=== PATIENT | female | born 1970 | race Asian ===

== ENCOUNTER 2023-06-23 15:57 | Emergency (ER) | payer OTHER, SELFPAY ==
[2023-06-23] VITALS (9 sets, daily range): BP systolic 109–168; BP diastolic 70–98; BMI 25.3
--- NOTE | 2023-06-23 17:11 | ED.GENMED ---
History of Present Illness
<Jennifer Barnhart PA-C - Last Filed: 06/23/23 21:13>
General
Chief Complaint: Chest Pain
Source: patient
Exam Limitations: none
Time Seen by Provider: 06/23/23 16:38
Nursing documentation reviewed up to this point in time: agreed with
Travel History
Have you had any contact with someone who has COVID-19?: No
Do you have any symptoms of coronavirus? Fever > 100 degrees, chills, cough, shortness of breath, sore throat, loss of taste or smell, muscle aches, or headache?: No
History of Present Illness
History of Present Illness:
Patient is a 52 y.o female with hx HTN, DM2 presenting for evaluation of fluctuations in heart rate associated with brief episode of chest pressure earlier today. Patient states that her apple watch monitors her heart rate and she noticed earlier
around 2PM that it was fluctuating between 50-90bpm and decided to come to the emergency department for evaluation. While driving to the ER around 3PM she started feeling left sided chest pressure, mild shortness of breath, and lightheadedness. She
pulled over and called 911. While in route to ER via EMS she received 2 doses of baby aspirin and a dose of nitroglycerin. Since arriving to the emergency department she is asymptomatic. She denies any recent fevers, chills, vomiting, cough,
hemoptysis. No weakness, visual changes, or numbness. No recent travel or surgeries.
She has recently been working to get blood pressure under better control. She has been seen in both our ER and [place] ED multiple times over the past month. She started metoprolol 50mg BID 1 week ago, as prescribed by PCP, which has been working
well for patients blood pressure thus far.
She has appointment scheduled with cardiology tomorrow.
Past History
<Jennifer Barnhart PA-C - Last Filed: 06/23/23 21:13>
Past History
ED Past Medical History: NIDDM; Negative HTN
Social History
Tobacco: Non-smoker
Alcohol: None
Drug: None
Personal:
Living: with family
Employment: Employed
Phy Exam
<Jennifer Barnhart PA-C - Last Filed: 06/23/23 21:13>
Physical Exam
Physical Exam:
General: Well appearing and non-toxic, vital signs reviewed- patient afebrile
HEENT: Atraumatic, normocephalic; pupils equal round reactive to light bilaterally, extraocular muscles intact, protecting airway
Neck: appears supple, normal ROM, no jugular venous distention
CV: Regular rate and rhythm, heart sounds normal, no evidence of cyanosis; no pain to palpation of anterior chest wall
Resp: No evidence of respiratory distress, lungs clear, no accessory muscle use
Abd: Soft, nontender, non-distended
Extremities: No deformities, no evidence of cyanosis or edema
Neuro: alert and oriented to person, place, time; speech normal, no focal neurological deficits
Psych: Normal affect
Skin: Intact, no rashes
Scores
<Jennifer Barnhart PA-C - Last Filed: 06/23/23 21:13>
Heart Score for Chest Pain Patients
STEMI patient?: No
History: Slightly or Non-Suspicious
ECG: Normal
Age: >45 - <65 years
Risk Factors: 1 or 2 Risk Factors
Troponin: </= Normal Limit
Heart Score for Chest Pain Patients: 2
Heart Score Risk: 2.5% MACE over next 6 weeks
Course
<Jennifer Barnhart PA-C - Last Filed: 06/23/23 21:13>
Orders/Labs/Results
Orders:
Orders
06/23/23 16:20
EKG [Electrocardiogram (*1)] Urgent
Reason for Study: Chest Pain
EKG- Treatment ONCE
06/23/23 17:26
Complete Blood Count/With Diff Urgent
Comprehensive Metabolic Panel Urgent
TSH Reflex To Free T4 Urgent
Troponin I Urgent
Abnormal Lab Results
06/23/23
17:26
WBC 12.5 H 10^3/uL
(4.8-10.8)
MCH 32.0 H pg
(27.0-31.0)
RDW 11.4 L %
(11.5-14.5)
Absolute Neuts (auto) 9.0 H 10^3/uL
(1.4-6.5)
Absolute Monos (auto) 0.7 H 10^3/uL
(0.1-0.6)
Lymphocytes % 20.1 L %
(20.5-51.1)
Creatinine 0.5 L mg/dL
(0.6-1.0)
Glucose 169 H mg/dl
(70-99)
06/23/23 17:26
06/23/23 17:26
Vital Signs
Initial and Last Documented VS:
Initial Vital Signs
Pulse Resp Pulse Ox
93 12 100
06/23/23 16:01 06/23/23 16:01 06/23/23 16:01
Last Documented Vital Signs
Temp Pulse Resp BP Pulse Ox
97.7 F 85 18 121/78 98
06/23/23 16:05 06/23/23 20:30 06/23/23 20:30 06/23/23 20:00 06/23/23 20:30
Charleslt;Teddy Aleman, DO - Last Filed: 06/23/23 18:09>
Orders/Labs/Results
Orders:
Orders
06/23/23 16:20
EKG [Electrocardiogram (*1)] Urgent
Reason for Study: Chest Pain
EKG- Treatment ONCE
06/23/23 17:26
Complete Blood Count/With Diff Urgent
Comprehensive Metabolic Panel Urgent
TSH Reflex To Free T4 Urgent
Troponin I Urgent
Abnormal Lab Results
06/23/23
17:26
WBC 12.5 H 10^3/uL
(4.8-10.8)
MCH 32.0 H pg
(27.0-31.0)
RDW 11.4 L %
(11.5-14.5)
Absolute Neuts (auto) 9.0 H 10^3/uL
(1.4-6.5)
Absolute Monos (auto) 0.7 H 10^3/uL
(0.1-0.6)
Lymphocytes % 20.1 L %
(20.5-51.1)
Creatinine 0.5 L mg/dL
(0.6-1.0)
Glucose 169 H mg/dl
(70-99)
06/23/23 17:26
06/23/23 17:26
Vital Signs
Initial and Last Documented VS:
Initial Vital Signs
Pulse Resp Pulse Ox
93 12 100
06/23/23 16:01 06/23/23 16:01 06/23/23 16:01
Last Documented Vital Signs
Temp Pulse Resp BP Pulse Ox
97.7 F 85 18 121/78 98
06/23/23 16:05 06/23/23 20:30 06/23/23 20:30 06/23/23 20:00 06/23/23 20:30
<Jennifer Barnhart PA-C - Last Filed: 06/23/23 21:13>
MDM/Problems Addressed
Differential Diagnosis Includes:
ACS, unstable angina, stable angina, cardiac arrhythmia,
MDM/Problems Addressed:
Patient is a 52 y.o female presenting for evaluation of heart palpitations with associated chest pressure earlier today. Symptoms have resolved since arriving to emergency department. She has been seen multiple times over the past month for various
complaints. All workups have been negative. She recently started metoprolol for high blood pressure and has follow-up scheduled tomorrow with cardiology for recent fluctuations in heart beat/palpitations. Physical exam as documented above. She is
hemodynamically stable. Physical exam without any acute findings. Heart regular rate rhythm, lungs clear. No focal neurologic deficits�do not suspect stroke. Will get cardiac workup. Basic labs, troponin, TSH, EKG. Will reassess.
CBC with mild leukocytosis of 12.5. Otherwise no clinically significant abnormalities. CMP without any clinically significant abnormalities. Troponin negative. TSH within normal range
EKG shows normal sinus rhythm without any signs of ischemia.
Cardiac workup negative. Patient has had multiple episodes while in emergency department of very brief tachyarrhythmia-sinus tach versus possible a flutter. Patient's vital signs remained stable other than occasional tachycardia. These have
occurred without any associated chest pain, shortness of breath. Patient is very worried about heart palpitations and if they occur at home. She would like to take her scheduled dose of metoprolol and continue to be monitored for the next hour.
She declined any antianxiety medication. Will reassess
Patient has remained asymptomatic for the past hour. She is feeling well. No indication at this time. Cardiac workup negative. We were able to capture and print monitor strip at the point of tachyarrhythmia with heart rate in 140s. She will
bring this to cardiology follow-up tomorrow. She is stable for discharge with strict return precautions, immediate cardiology follow-up tomorrow. Patient comfortable with this plan. All questions answered.
Chronic conditions affecting care:
Hypertension
Acute Exacerbation and/or Progression of Chronic Illness:
Palpitations
<Jennifer Barnhart PA-C - Last Filed: 06/23/23 21:13>
*Pulse Oximetry
Patient hypoxic: no
*EKG
Interpreted by ED Provider?: Yes
EKG Intrepretation Date: 06/23/23
Interpretation: normal
Comparison EKG: changes noted
Heart Rate: 90
Rate: normal
Rhythm: sinus
[place]: normal axis
Interval: normal interval
QRS Pattern: normal QRS
Ischemia: no ischemia
*Nozzle Cement Sprayer Helper Interpretation
Rate: normal
Interpretation: normal
Heart Rate: 96
Rhythm: sinus
*Critical Care Note
Total Time (30-74mins, 75-104mins- exclusive of procedures): Not Applicable
ED Attending Note
<Jennifer Barnhart PA-C - Last Filed: 06/23/23 21:13>
-
Portions of this chart may have been created with voice recognition software.� Occasional wrong word or��sound alike� substitutions may have occurred due to the inherent limitations of voice recognition software.
<Teddy Aleman DO - Last Filed: 06/23/23 18:09>
ED Attending Note
Patient seen and examined by attending physician: Yes
I performed the substantive portion of visit, reviewed & personally made and approve the management plan that is documented in note by myself or JAKE.: Yes
ED Attending Note:
Seen with PA examined independently agree with assessment and plan
Episode of palpitations while driving seen by myself and several other ER visits recently here had a run of tachyarrhythmia, will review the strips, she does have a appointment with cardiology tomorrow is already on a beta-yonatan
Discharge Plan
Departure
Patient Disposition: Home (Routine Discharge)
Date of Disposition: 06/23/23
Time of Disposition: 21:06
Patient with high blood pressure during this ER visit?: No
Condition: Good
Covid-19: Not Applicable
Discharge Problem:
Heart palpitations
Instructions: Chest Pain (DC), Palpitations (DC)
Prescriptions:
No Action
glipizide 10 mg Tablet
10 mg PO BID
metformin 1,000 mg Tablet
1,000 mg PO BID@0800,1700
Humira(CF) Pen 80 mg/0.8 mL Pen Injector Kit
80 mg SC Q2W
lisinopril 5 mg tablet
5 mg PO DAILY Qty: 30 0RF
aspirin [Adult Low Dose Aspirin] 81 mg tablet,delayed release (DR/EC)
81 mg PO DAILY Qty: 60 0RF
Referrals:
Daria Birmingham NP [Family Provider] -
Raj Bach MD [Active] - Keep scheduled appt
Activity Restrictions/Additional Instructions:
-Return to the emergency department with any severe chest pain, shortness of breath, altered mental status, significant worsening in current symptoms, or any other concerns
-As discussed - continue to take your medication as prescribed
-Follow-up with cardiology tomorrow with scheduled appointment.
-Stay well hydrated.
Interventions
Interventions:
*Risk Screen - Suicide Last Done: 06/23/23 16:13
*General Assessment Last Done: 06/23/23 16:13
*Neglect/Abuse Screening Last Done: 06/23/23 16:13
ED- Fall Risk Assessment Last Done: 06/23/23 16:06
*ED COVID-19 Vaccine History Last Done: 06/23/23 16:10
ED- Cardiac Assessment Last Done: 06/23/23 16:14
[2023-06-23 17:39] LABS: % Basophils 0.3 % (0-2); % Eosinophils 1.7 % (0-6); % Immature Granulocytes 0.3 % (0-0.5); % Lymphocytes 20.1 % (20.5-51.1); % Monocytes 5.4 % (1.7-9.3); % Neutrophils 72.2 % (42.2-75.2); Absolute Eosinophils 0.2 10^3/uL (0-0.7); Absolute Lymphocytes 2.5 10^3/uL (1.2-3.4); Absolute Monocytes 0.7 10^3/uL (0.1-0.6); Hematocrit 37.9 % (37.0-47.0); Hemoglobin 13.8 g/dL (12.0-16.0); Mean Corp Hgb Conc. 36.4 g/dL (33.0-37.0); Mean Corpuscular Volume 87.9 fL (81.0-99.0); Mean Platelet Volume 9.4 fL (7.4-10.4); Nucleated Red Blood Cells % 0 %; Platelet Count 281 10^3/uL (130-400); Red Blood Cell Count 4.31 10^6/uL (4.20-5.40); Red Cell Dist. Width 11.4 % (11.5-14.5); White Blood Cell Count 12.5 10^3/uL (4.8-10.8)
--- NOTE | 2023-06-23 18:05 | PTCARENOTE ---
Pt rings call brito and calls out for Nurse. Pt states she had a flushing sensation throughout her body and her heart rate was elevated. Pt's Tele in ST w/ HR 140's. Episode lasted for less than 1 minute. Pt's HR now in the 80's and pt states the
symptoms are gone. Jennifer HALEY advised. Will continue to monitor.
[2023-06-23 18:13] LABS: Troponin I < 0.012 ng/ml
[2023-06-23 18:16] LABS: ALT (SGPT) 29 U/L (0-35); AST (SGOT) 27 U/L (14-36); Albumin 4.1 g/dl (3.5-5.0); Alkaline Phosphatase 82 U/L (38-126); Blood Urea Nitrogen 12 mg/dl (7-17); Calcium 9.3 mg/dl (8.4-10.2); Carbon Dioxide 22 mmol/L (22-30); Chloride 104 mmol/L (98-107); Estimated Creatinine Clearance 105 ml/min; Glucose 169 mg/dl (70-99); Potassium 3.8 mmol/L (3.5-5.1); Sodium 135 mmol/L (135-145); Total Bilirubin 0.5 mg/dl (0.2-1.3); Total Protein 6.7 g/dl (6.3-8.2); eGFR > 60.00
[2023-06-23 18:55] LABS: TSH Reflex To Free T4 0.48 uIU/ml (0.47-4.68)
== END 2023-06-23 21:58 | disposition home or self-care (01) ==
LOC: EMR 15:57
PROVIDERS: Physician Assistant; EMERGENCY PHYSICIAN Emergency Medicine; FAMILY PHYSICIAN Nurse Practitioner Family
DX: R00.2 Palpitations (principal); I10 Essential (primary) hypertension; E11.9 Type 2 diabetes mellitus without complications; Z79.84 Long term (current) use of oral hypoglycemic drugs
CPT/HCPCS: 99283; 80053; 84443; 84484; 85025; 93005

== ENCOUNTER 2023-07-06 07:06 | Emergency (ER) | payer OTHER, SELFPAY ==
[2023-07-06 07:08] VITALS: BP 117/78; BMI 24.2
[2023-07-06 07:09] VITALS: BP 117/78
--- NOTE | 2023-07-06 07:17 | ED.GENMED ---
History of Present Illness
<Barney Garnett PA-C - Last Filed: 07/06/23 10:35>
General
Chief Complaint: Dizziness
Source: patient and records
Time Seen by Provider: 07/06/23 07:11
History of Present Illness
History of Present Illness:
52-year-old female with past medical history of hypertension, diabetes, palpitations with recent admission to this hospital a few weeks ago due to palpitations and lightheadedness presenting back to the emergency department for the exact same
symptoms that started around 430 this morning accompanied with persistent lightheadedness, paresthesia to the hands and fingers, generalized weakness and heart racing which are now all resolved. Patient notes that since her discharge about 2 weeks
ago from here she had been feeling better and is scheduled to have a cardiology follow-up with [facility] cardiology where she notes she will be getting a stress test and wearing a 2-week Holter monitor. Patient has yet to take her 50 mg of
metoprolol this morning prior to arrival. She notes that upon arrival to the emergency department her symptoms are overall now fully resolved. She denies any chest pain, shortness of breath, diaphoresis, exertional dyspnea, orthopnea, peripheral
edema, fevers or other recent illnesses. Social history was noncontributory. Patient does also note try to cut back on caffeine intake.
<DO Genia Esparza Last Filed: >
Travel History
Have you had any contact with someone who has COVID-19?: No
Do you have any symptoms of coronavirus? Fever > 100 degrees, chills, cough, shortness of breath, sore throat, loss of taste or smell, muscle aches, or headache?: No
Past History
<Barney Garnett PA-C - Last Filed: 07/06/23 10:35>
Past History
ED Past Medical History: Asthma and HTN
ED Past Surgical History: None
<Armen Ba DO - Last Filed: >
Past History
ED Past Medical History: NIDDM; Negative HTN
Social History
Tobacco: Non-smoker
Alcohol: None
Drug: None
Personal:
Living: with family
Employment: Employed
Review of Systems
<Barney Garnett PA-C - Last Filed: 07/06/23 10:35>
Review of Systems
All Other Systems: ROS reviewed and negative except as documented in HPI and ROS
Phy Exam
<Barney Garnett PA-C - Last Filed: 07/06/23 10:35>
Physical Exam
Physical Exam:
GENERAL: Alert , in no apparent distress
EYE: conjunctiva clear
NECK: Supple
ENT: o/p clr, mmm.
CARDIAC: Regular rate and rhythm
LUNGS: Clear breath sounds bilaterally, no acute respiratory distress, no wheezes/rales/rhonchi
NEUROLOGICAL: Alert and oriented
SKIN: Warm and dry, skin intact.
MUSCULOSKELETAL: well perfused. No edema
PSYCH: Normal and appropriate interaction.
Scores
<Barney Garnett PA-C - Last Filed: 07/06/23 10:35>
Heart Failure Risk
Heart Failure Risk Score: Not Applicable
Heart Score for Chest Pain Patients
STEMI patient?: Not applicable
Withdrawal Assessment of Alcohol
Withdrawal Assessment Completed?: Not applicable
Course
<Barney Garnett PA-C - Last Filed: 07/06/23 10:35>
Orders/Labs/Results
Orders:
Orders
07/06/23 07:10
EKG [Electrocardiogram (*1)] Urgent
Reason for Study: Vertigo / Dizzy
EKG- Treatment ONCE
07/06/23 07:16
Complete Blood Count/With Diff Urgent
Comprehensive Metabolic Panel Urgent
Troponin I Urgent
Abnormal Lab Results
07/06/23
07:16
MCH 31.9 H pg
(27.0-31.0)
Neutrophils % 41.8 L %
(42.2-75.2)
Creatinine 0.5 L mg/dL
(0.6-1.0)
Glucose 205 H mg/dl
(70-99)
ALT 38 H U/L
(0-35)
07/06/23 07:16
07/06/23 07:16
Vital Signs
Initial and Last Documented VS:
Initial Vital Signs
Temp Pulse Resp BP Pulse Ox
98.6 F 71 16 117/78 97
07/06/23 07:08 07/06/23 07:08 07/06/23 07:08 07/06/23 07:08 07/06/23 07:08
Last Documented Vital Signs
Temp Pulse Resp BP Pulse Ox
98.6 F 69 10 117/78 97
07/06/23 07:08 07/06/23 09:15 07/06/23 09:15 07/06/23 07:09 07/06/23 07:08
<Armen Ba, DO - Last Filed: >
Orders/Labs/Results
Orders:
Orders
07/06/23 07:10
EKG [Electrocardiogram (*1)] Urgent
Reason for Study: Vertigo / Dizzy
EKG- Treatment ONCE
07/06/23 07:16
Complete Blood Count/With Diff Urgent
Comprehensive Metabolic Panel Urgent
Troponin I Urgent
Abnormal Lab Results
07/06/23
07:16
MCH 31.9 H pg
(27.0-31.0)
Neutrophils % 41.8 L %
(42.2-75.2)
Creatinine 0.5 L mg/dL
(0.6-1.0)
Glucose 205 H mg/dl
(70-99)
ALT 38 H U/L
(0-35)
07/06/23 07:16
07/06/23 07:16
Vital Signs
Initial and Last Documented VS:
Initial Vital Signs
Temp Pulse Resp BP Pulse Ox
98.6 F 71 16 117/78 97
07/06/23 07:08 07/06/23 07:08 07/06/23 07:08 07/06/23 07:08 07/06/23 07:08
Last Documented Vital Signs
Temp Pulse Resp BP Pulse Ox
98.6 F 69 10 117/78 97
07/06/23 07:08 07/06/23 09:15 07/06/23 09:15 07/06/23 07:09 07/06/23 07:08
<Barney Garnett PA-C - Last Filed: 07/06/23 10:35>
MDM/Problems Addressed
Differential Diagnosis Includes:
Cardiac dysrhythmia, electrolyte disturbance, I do not have concern for thyroid etiology given normal TSH and thyroid labs done on last visit, no concern for infectious etiology
MDM/Problems Addressed:
52-year-old female presenting to the emergency department via EMS for evaluation of palpitations, paresthesia to the hands and fingertips, lightheadedness and generalized weakness. Symptoms are all now fully resolved. Patient is in a normal sinus
rhythm on telemetry. She is in no acute distress. I reviewed her last admission and it was thought that symptoms could potentially be related to a perimenopausal state as well as neuropathy. There was 1 episode where patient did have a heart rate
going to around 150 bpm but no other abnormal findings on telemetry during visit. She had negative troponins trended. Her echocardiogram showed an ejection fraction of 55 to 60% with no significant valvular abnormalities. There was a small
thyroid nodule that was recommended to be followed up outpatient. Overall I am not very suspicious for an acute emergent pathology given patient has been worked up in this emergency department as well as as an inpatient multiple times for similar
related concerns. I do anticipate discharge home.
<Barney Garnett PA-C - Last Filed: 07/06/23 10:35>
*Pulse Oximetry
Patient hypoxic: no
*EKG
Interpreted by ED Provider?: Yes
Comparison EKG: no changes
Heart Rate: 72
Rate: normal
Rhythm: sinus
[place]: normal axis
Ischemia: no ischemia
*Acoustical Installer Interpretation
Rate: normal
Rhythm: sinus
*Critical Care Note
Total Time (30-74mins, 75-104mins- exclusive of procedures): Not Applicable
Data Reviewed
Review of Other/Old Records Reveals: Labs, Records and Discharge Summary
Source: patient and records
<Barney Garnett PA-C - Last Filed: 07/06/23 10:35>
Patient Management
Escalation/DeEscalation of care consider admission/obs:
07/06/2023 0908 AM: Patient remains in a rate controlled normal sinus rhythm. Her lab work remains unremarkable and overall unchanged from her last visit to the emergency department. Vital signs remained within normal limits. Patient has arranged
follow-up with cardiology in the coming week. Aware of return precautions but otherwise stable for discharge home.
<Armen Ba DO - Last Filed: >
-
Portions of this chart may have been created with voice recognition software.� Occasional wrong word or��sound alike� substitutions may have occurred due to the inherent limitations of voice recognition software.
Discharge Plan
Departure
Patient Disposition: Home (Routine Discharge)
Date of Disposition: 07/06/23
Time of Disposition: 09:07
Patient with high blood pressure during this ER visit?: No
Discharge Problem:
Palpitations
Instructions: Palpitations (DC)
Prescriptions:
No Action
glipizide 10 mg Tablet
10 mg PO QPM
metformin 1,000 mg Tablet
1,000 mg PO BID@0800,1700
atorvastatin 10 mg Tablet
10 mg PO DAILY
glipizide 5 mg Tablet
5 mg PO DAILY
Ozempic 0.25 mg or 0.5 mg (2 mg/3 mL) Pen Injector
0.25 mg SC QWEEK
Rx Instructions:
for 4 weeks
metoprolol tartrate 50 mg Tablet
50 mg PO BID
escitalopram oxalate [Lexapro] 10 mg Tablet
10 mg PO DAILY
Humira 40 mg/0.8 mL Syringe Kit
40 mg SC Q2W
Referrals:
Daria Birmingham NP [Family Provider] -
Interventions
Interventions:
*Risk Screen - Suicide Last Done: 07/06/23 07:08
*General Assessment Last Done: 07/06/23 07:08
*Neglect/Abuse Screening Last Done: 07/06/23 07:08
ED- Fall Risk Assessment Last Done: 07/06/23 07:08
*ED COVID-19 Vaccine History Last Done: 07/06/23 07:08
*Nursing Disposition Last Done: 07/06/23 09:24
ED- Neurological Assessment Last Done: 07/06/23 07:08
ED- Cardiac Assessment Last Done: 07/06/23 07:08
ED Swallowing Screen Last Done: 07/06/23 07:08
Discharge Date and Time
Discharge Date/Time: 07/06/23 09:25
[2023-07-06 07:28] LABS: % Basophils 0.8 % (0-2); % Eosinophils 4.3 % (0-6); % Immature Granulocytes 0.2 % (0-0.5); % Lymphocytes 47.2 % (20.5-51.1); % Monocytes 5.7 % (1.7-9.3); % Neutrophils 41.8 % (42.2-75.2); Absolute Eosinophils 0.2 10^3/uL (0-0.7); Absolute Lymphocytes 2.4 10^3/uL (1.2-3.4); Absolute Monocytes 0.3 10^3/uL (0.1-0.6); Absolute Neutrophils 2.1 10^3/uL (1.4-6.5); Hemoglobin 14.1 g/dL (12.0-16.0); Mean Corp Hgb Conc. 36.2 g/dL (33.0-37.0); Mean Corpuscular Hgb 31.9 pg (27.0-31.0); Mean Corpuscular Volume 88.2 fL (81.0-99.0); Mean Platelet Volume 8.7 fL (7.4-10.4); Nucleated Red Blood Cells % 0 %; Platelet Count 265 10^3/uL (130-400); Red Blood Cell Count 4.42 10^6/uL (4.20-5.40); Red Cell Dist. Width 11.5 % (11.5-14.5); White Blood Cell Count 5.1 10^3/uL (4.8-10.8)
[2023-07-06 07:42] LABS: ALT (SGPT) 38 U/L (0-35); AST (SGOT) 29 U/L (14-36); Albumin 3.9 g/dl (3.5-5.0); Alkaline Phosphatase 70 U/L (38-126); Blood Urea Nitrogen 10 mg/dl (7-17); Calcium 9.6 mg/dl (8.4-10.2); Carbon Dioxide 23 mmol/L (22-30); Chloride 103 mmol/L (98-107); Estimated Creatinine Clearance 105 ml/min; Glucose 205 mg/dl (70-99); Potassium 4.1 mmol/L (3.5-5.1); Sodium 136 mmol/L (135-145); Total Bilirubin 0.7 mg/dl (0.2-1.3); Total Protein 6.6 g/dl (6.3-8.2); eGFR > 60.00
[2023-07-06 07:54] LABS: Troponin I < 0.012 ng/ml
== END 2023-07-06 09:25 | disposition home or self-care (01) ==
LOC: EMR 07:06
PROVIDERS: EMERGENCY PHYSICIAN Emergency Medicine; FAMILY PHYSICIAN Nurse Practitioner Family
DX: R00.2 Palpitations (principal); I10 Essential (primary) hypertension; E11.9 Type 2 diabetes mellitus without complications; J45.909 Unspecified asthma, uncomplicated
CPT/HCPCS: 99283; 80053; 84484; 85025; 93005

== ENCOUNTER 2023-07-06 10:15 | Emergency (ER) | payer OTHER, SELFPAY ==
[2023-07-06 10:18] VITALS: BP 116/78
[2023-07-06 10:53] VITALS: BMI 24.3
[2023-07-06 11:03] LABS: Glucose - Point of Care 171 mg/dl (70-99)
[2023-07-06 11:05] VITALS: BP 114/74
[2023-07-06 11:06] VITALS: BP 113/78
[2023-07-06 11:07] VITALS: BP 92/72
[2023-07-06 11:11] VITALS: BP 113/78; BP 114/74; BP 92/72; PULSE 66; PULSE 69; PULSE 72
--- NOTE | 2023-07-06 11:11 | EDRN ---
bedside glucose obtained and orthostatic vital signs obtained and provider Barney HALEY notified
--- NOTE | 2023-07-06 11:13 | ED.GENMED ---
History of Present Illness
General
Chief Complaint: Dizziness
Source: patient
Time Seen by Provider: 07/06/23 10:52
Travel History
Have you had any contact with someone who has COVID-19?: No
Do you have any symptoms of coronavirus? Fever > 100 degrees, chills, cough, shortness of breath, sore throat, loss of taste or smell, muscle aches, or headache?: No
History of Present Illness
History of Present Illness:
52-year-old female presenting back to the emergency department after being seen earlier this morning for palpitations and lightheadedness, started to feel symptomatic again following discharge so resigned herself back in. Patient denies any new
symptoms. She has been in this emergency department and [place] emergency department multiple times over the last month or so with the exact same concern without any specific etiology found and symptoms potentially attributed to a perimenopausal
state versus possible anxiety.
Past History
Past History
ED Past Medical History: Asthma, HTN and NIDDM
ED Past Surgical History: None
Social History
Tobacco: Non-smoker
Alcohol: None
Drug: None
Personal:
Living: with family
Employment: Employed
Review of Systems
Review of Systems
All Other Systems: ROS reviewed and negative except as documented in HPI and ROS
Phy Exam
Physical Exam
Physical Exam:
GENERAL: Alert , in no apparent distress
EYE: conjunctiva clear
NECK: Supple
ENT: o/p clr, mmm.
CARDIAC: Regular rate and rhythm
LUNGS: Clear breath sounds bilaterally, no acute respiratory distress, no wheezes/rales/rhonchi
NEUROLOGICAL: Alert and oriented
SKIN: Warm and dry, skin intact.
MUSCULOSKELETAL: well perfused.
PSYCH: Normal and appropriate interaction.
Scores
Heart Failure Risk
Heart Failure Risk Score: Not Applicable
Heart Score for Chest Pain Patients
STEMI patient?: Not applicable
Withdrawal Assessment of Alcohol
Withdrawal Assessment Completed?: Not applicable
Course
Orders/Labs/Results
Orders:
Orders
07/06/23 10:53
Bedside Glucose- Treatment ONCE
Orthostatic VS- Treatment ONCE
07/06/23 11:22
Electrocardiogram (*1) Urgent
Reason for Study: Palpitations
EKG- Treatment ONCE
Abnormal Lab Results
07/06/23
11:03
POC Glucose 171 H mg/dl
(70-99)
Vital Signs
Initial and Last Documented VS:
Initial Vital Signs
Temp Pulse Resp BP Pulse Ox
98 F 76 17 116/78 100
07/06/23 10:18 07/06/23 10:18 07/06/23 10:18 07/06/23 10:18 07/06/23 10:18
Last Documented Vital Signs
Temp Pulse Resp BP Pulse Ox
98 F 70 14 92/72 99
07/06/23 10:18 07/06/23 11:45 07/06/23 11:06 07/06/23 11:07 07/06/23 10:53
MDM/Problems Addressed
Differential Diagnosis Includes:
Anxiety, cardiac dysrhythmia, no concern for electrolyte disturbance, no concern for thyroid disorder
MDM/Problems Addressed:
52-year-old female presenting back to the emergency department after being seen and evaluated earlier today for the exact same concern. Overall patient has been worked up extensively and has been admitted for the same concern in the past. I do not
have concern for emergent pathology given patient has had admission and has been worked up multiple times and no specific etiology has yet to be found. Patient's lab work this morning was reassuring. Will check orthostatic vital signs and bedside
glucose. As long as this is unremarkable we will discharge patient back home.
Chronic conditions affecting care: DM
*Pulse Oximetry
Patient hypoxic: no
*EKG
Interpreted by ED Provider?: Yes
Interpretation: normal
Comparison EKG: no changes
Heart Rate: 69
Rate: normal
Rhythm: sinus
[place]: normal axis
Ischemia: no ischemia
*Critical Care Note
Total Time (30-74mins, 75-104mins- exclusive of procedures): Not Applicable
Data Reviewed
Review of Other/Old Records Reveals: Labs, Records and Discharge Summary
Source: patient and records
Patient Management
Escalation/DeEscalation of care consider admission/obs:
Patient's repeat EKG is negative for any ischemia. Orthostatic vital signs unremarkable. [id number] glucose is elevated however around patient's baseline as to when she has been here in the emergency department. She is stable for continued
outpatient management.
ED Attending Note
-
Portions of this chart may have been created with voice recognition software.� Occasional wrong word or��sound alike� substitutions may have occurred due to the inherent limitations of voice recognition software.
Discharge Plan
Departure
Patient Disposition: Home (Routine Discharge)
Date of Disposition: 07/06/23
Time of Disposition: 11:52
Patient with high blood pressure during this ER visit?: No
Discharge Problem:
Episodic lightheadedness
Instructions: Dizziness, Nonvertigo, (DC)
Prescriptions:
No Action
glipizide 10 mg Tablet
10 mg PO QPM
metformin 1,000 mg Tablet
1,000 mg PO BID@0800,1700
atorvastatin 10 mg Tablet
10 mg PO DAILY
glipizide 5 mg Tablet
5 mg PO DAILY
Ozempic 0.25 mg or 0.5 mg (2 mg/3 mL) Pen Injector
0.25 mg SC QWEEK
Rx Instructions:
for 4 weeks
metoprolol tartrate 50 mg Tablet
50 mg PO BID
escitalopram oxalate [Lexapro] 10 mg Tablet
10 mg PO DAILY
Humira 40 mg/0.8 mL Syringe Kit
40 mg SC Q2W
Referrals:
Daria Birmingham NP [Family Provider] -
Interventions
Interventions:
*Risk Screen - Suicide Last Done: 07/06/23 10:21
*General Assessment Last Done: 07/06/23 10:21
*Neglect/Abuse Screening Last Done: 07/06/23 10:21
ED- Fall Risk Assessment Last Done: 07/06/23 10:53
*ED COVID-19 Vaccine History Last Done: 07/06/23 10:53
ED- Neurological Assessment Last Done: 07/06/23 10:53
ED- Cardiac Assessment Last Done: 07/06/23 10:53
ED Swallowing Screen Last Done: 07/06/23 10:53
--- NOTE | 2023-07-06 12:35 | EDRN ---
Barney HALEY at the pts bedside with this RN speaking to the pt about discharge instructions
--- NOTE | 2023-07-06 12:45 | EDRN ---
the pt pressed the call brito and this RN entered the pts room, the pt was completely dressed sitting on the side of the bed and the pt stated to this RN, 'I just feel dizzy and i can't stand up, i just can't walk', this RN notified Barney HALEY
--- NOTE | 2023-07-06 13:10 | EDRN ---
Barney HALEY at the pts bedside speaking with the pt, the pt was able to stand up without any difficulty and was able to walk around the room without any difficulty, the pt was educated by Barney HALEY about the importance of follow up
visit etc
== END 2023-07-06 13:28 | disposition home or self-care (01) ==
LOC: EMR 10:15
PROVIDERS: EMERGENCY PHYSICIAN Emergency Medicine; FAMILY PHYSICIAN Nurse Practitioner Family
DX: R42 Dizziness and giddiness (principal); J45.909 Unspecified asthma, uncomplicated; I10 Essential (primary) hypertension; F41.9 Anxiety disorder, unspecified; E11.9 Type 2 diabetes mellitus without complications
CPT/HCPCS: 99283; 82962; 93005

== ENCOUNTER 2025-01-10 17:44 | Emergency (ER) | payer OTHER, SELFPAY ==
[2025-01-10 17:46] VITALS: BP 167/90
--- NOTE | 2025-01-10 19:13 | ED.GENMED ---
History of Present Illness
<Amy Mchugh MD, Resident - Last Filed: 01/10/25 22:33>
General
Chief Complaint: Headache
Source: patient
Time Seen by Provider: 01/10/25 19:12
Nursing documentation reviewed up to this point in time: agreed with
History of Present Illness
History of Present Illness:
54-year-old female with past medical history of asthma, hypertension, type 2 diabetes comes to the ED due to continued right-sided headaches. Patient had been in [place] and developed some right-sided headaches localized mainly around the right
frontal sinus. This has been going on for about a week now and patient initially went to her PCP for evaluation. She was started on Augmentin and has taken it for almost a week without any improvement in symptoms. Says that she cannot sleep and
has been taking Tylenol and Motrin as needed. She does not have any fever or chills but does have some cough, postnasal drip. Does not have any shortness of breath, chest pain, difficulty breathing. Has not had any nausea, vomiting, or abdominal
pain. She came back from [place] on January 04 and says that her symptoms are pretty much stayed the same, but may have gotten a little bit worse. She was told by her primary care to come to the ED for further evaluation.
Past History
<Amy Mchugh MD, Resident - Last Filed: 01/10/25 22:33>
Past History
ED Past Medical History: None, Asthma, HTN and NIDDM
ED Past Surgical History: None
Social History
Tobacco: Former smoker
Alcohol: Occasional
Drug: None
Personal:
Living: with family
Employment: Employed
Review of Systems
<Amy Mchugh MD, Resident - Last Filed: 01/10/25 22:33>
Review of Systems
Allergies reviewed?: Yes
All Other Systems: ROS reviewed and negative except as documented in HPI and ROS
Phy Exam
<Amy Mchugh MD, Resident - Last Filed: 01/10/25 22:33>
General Physical Exam
General Presentation: well appearing
General age: appears stated age
General Skin: warm and dry
General Habitus: normal
General Mental: alert
General Hydration: appears well hydrated
ENT Exam
ENT Exam: other (Tenderness around the right frontal sinuses)
Cardiovascular Exam
Cardiovascular Exam: regular rate/rhythm, no edema and no murmur
Pulmonary Exam
Pulmonary Exam: no respiratory distress, no rales, no crackles and no rhonchi
Breath Sounds: Wheeze: left lower
Skin Exam
Skin Exam: normal color and warm/dry
Course
<Amy Mchugh MD, Resident - Last Filed: 01/10/25 22:33>
Orders/Labs/Results
Orders:
Orders
01/10/25 19:35
Acetaminophen [Tylenol] 650 mg PO NOW STA
01/10/25 19:39
CT Head W/o Iv Contrast Urgent
Comment:
Reason For Exam: Right sided headache
01/10/25 19:42
COVID-19 Antigen Urgent
Source: Nasal Swab
Influenza A+B Rapid Molecular Urgent
ANGEL Source: Nasal Swab
Specimen Description:
01/10/25 22:29
Doxycycline [Vibramycin] 100 mg PO NOW STA
Vital Signs
Initial and Last Documented VS:
Initial Vital Signs
Temp Pulse Resp BP Pulse Ox
97.6 F 86 16 167/90 95
01/10/25 17:46 01/10/25 17:46 01/10/25 17:46 01/10/25 17:46 01/10/25 17:46
Last Documented Vital Signs
Temp Pulse Resp BP Pulse Ox
97.9 F 75 14 132/82 98
01/10/25 19:47 01/10/25 22:12 01/10/25 22:12 01/10/25 22:12 01/10/25 22:12
<Micah Hammonds, DO - Last Filed: 01/10/25 22:53>
Orders/Labs/Results
Orders:
Orders
01/10/25 19:35
Acetaminophen [Tylenol] 650 mg PO NOW STA
01/10/25 19:39
CT Head W/o Iv Contrast Urgent
Comment:
Reason For Exam: Right sided headache
01/10/25 19:42
COVID-19 Antigen Urgent
Source: Nasal Swab
Influenza A+B Rapid Molecular Urgent
ANGEL Source: Nasal Swab
Specimen Description:
01/10/25 22:29
Doxycycline [Vibramycin] 100 mg PO NOW STA
Vital Signs
Initial and Last Documented VS:
Initial Vital Signs
Temp Pulse Resp BP Pulse Ox
97.6 F 86 16 167/90 95
01/10/25 17:46 01/10/25 17:46 01/10/25 17:46 01/10/25 17:46 01/10/25 17:46
Last Documented Vital Signs
Temp Pulse Resp BP Pulse Ox
97.9 F 75 14 132/82 98
01/10/25 19:47 01/10/25 22:12 01/10/25 22:12 01/10/25 22:12 01/10/25 22:12
<Amy Mchugh MD, Resident - Last Filed: 01/10/25 22:33>
MDM/Problems Addressed
Differential Diagnosis Includes:
Sinusitis, sinus abscess, COVID, flu
MDM/Problems Addressed:
54-year-old female comes to the ED due to right-sided headaches.
Will check for flu, COVID due to patient's recent history of travel to [place]
Patient has been on antibiotic treatment and has not had any fever or chills
Will check CT head without contrast for intracranial abnormalities
CT Head shows evidence of right sided sinusitis
Will give Doxycycline to take for 5 more days
<Amy Mchugh MD, Resident - Last Filed: 01/10/25 22:33>
*Pulse Oximetry
SaO2: 95
Oxygen Mode of Delivery: Room air
Patient hypoxic: no
*Critical Care Note
Total Time (30-74mins, 75-104mins- exclusive of procedures): Not Applicable
ED Attending Note
<Amy Mchugh MD, Resident - Last Filed: 01/10/25 22:33>
-
Portions of this chart may have been created with voice recognition software.� Occasional wrong word or��sound alike� substitutions may have occurred due to the inherent limitations of voice recognition software.
<Micah Hammonds, DO - Last Filed: 01/10/25 22:53>
ED Attending Note
Patient seen and examined by attending physician: Yes
I performed a history and physical exam of patient and discussed management with resident, I reviewed resident's note and agree with documented findings and plan of care.: Yes
ED Attending Note:
I have reviewed and agree with history of treatment plan by Amy Mchugh MD. My exam revealed
Physical Exam
General: no apparent distress, not acutely ill
Neck: supple. no meningeal signs. normal posterior pharynx
Heart: s1/s2 regular rate and rhythm, no murmur. equal radial
pulses.
HEENT: Pupils equal round reactive to light, EOMI, right maxillary sinus tenderness
Lungs: no acute respiratory distress. clear bilaterally
Abdomen: normal bowel sounds. not tender. no CVAT
Neuro: alert and oriented. no focal neurological deficits cranial nerves II through XII intact
Skin: no rash
Psychiatric: well kept. interactive and cooperative
Extremities: no edema. no calf tenderness. negative homans. good distal pulses
54-year-old female with sinusitis will change antibiotic to doxycycline and follow-up with primary care.
Discharge Plan
Departure
Patient Disposition: Home (Routine Discharge)
Date of Disposition: 01/10/25
Time of Disposition: 22:31
Patient with high blood pressure during this ER visit?: Yes
Condition: Good
Discharge Problem:
Acute sinusitis
Instructions: Sinusitis in adults - ED discharge instructions, BLOOD PRESSURE
Prescriptions:
New
doxycycline hyclate 100 mg capsule
100 mg PO BID Qty: 13 0RF
No Action
atorvastatin 10 mg Tablet
10 mg PO DAILY
metoprolol tartrate 50 mg Tablet
50 mg PO BID
escitalopram oxalate [Lexapro] 10 mg Tablet
15 mg PO DAILY
amoxicillin-pot clavulanate [Augmentin] 875-125 mg Tablet
1 tab PO BID
Ozempic 2 mg/dose (8 mg/3 mL) Pen Injector
2 mg SC QWEEK
Activity Restrictions/Additional Instructions:
Finish the course of prescribed antibiotics.
Follow-up with your PCP regarding sinus infection.
We will send Doxycycline to take instead of the Augmentin as symptoms have not resolved. Will send Doxycycline 100mg twice a day for 7 days.
Interventions
Interventions:
*Risk Screen - Suicide Last Done: 01/10/25 17:47
*General Assessment Last Done: 01/10/25 19:42
*Neglect/Abuse Screening Last Done: 01/10/25 17:47
*ED- Fall Risk Assessment Last Done: 01/10/25 19:42
ED- Neurological Assessment Last Done: 01/10/25 19:56
Discharge Date and Time
Print Language: BERMUDIAN
[2025-01-10 19:42] VITALS: BMI 25.3
[2025-01-10 19:47] VITALS: BP 140/86
[2025-01-10] MEDS: TYLENOL 650 MG PO (19:48)
[2025-01-10 20:18] LABS: COVID-19 Antigen Negative (Negative)
[2025-01-10 22:12] VITALS: BP 132/82
[2025-01-10] MEDS: VIBRAMYCIN 100 MG PO (23:09)
== END 2025-01-10 23:14 | disposition home or self-care (01) ==
LOC: EMR 17:44
PROVIDERS: EMERGENCY PHYSICIAN Emergency Medicine; FAMILY PHYSICIAN Family Medicine
DX: J01.90 Acute sinusitis, unspecified (principal); J45.909 Unspecified asthma, uncomplicated; I10 Essential (primary) hypertension; E11.9 Type 2 diabetes mellitus without complications; Z11.52 Encounter for screening for COVID-19; Z87.891 Personal history of nicotine dependence
CPT/HCPCS: 99284; 70450; 87502; 87811